=== PATIENT | male | born 1975 | race Caucasian/White ===

== ENCOUNTER 2022-10-05 17:57 | Inpatient (IN) | payer OTHER ==
[2022-10-05] MEDS ORDERED: NITROGLYCERIN OINT 1 INCH/GM PACKET TOPICAL STA (18:40)
[2022-10-05] MEDS ORDERED: FUROSEMIDE 10 MG/ML 4 ML VIAL IV STA (18:40)
--- NOTE | 2022-10-05 18:42 | ED ---
General Adult HPI - General Chief complaint: Shortness of Breath Stated complaint: swelling in feet Time Seen by Provider: 10/05/22 18:25 Source: patient, RN notes reviewed Mode of arrival: ambulatory Limitations: no limitations - History of Present Illness Initial comments: Patient is a pleasant 46-year-old male presenting to emergency department for l eg edema. Symptoms have rest over the past 7-10 days. Patient has had some mild occasional dyspnea over a couple of months. No history of similar symptoms previously. No chest pain. No calf pain. - Related Data Previous Rx's Medication Instructions Recorded amLODIPine BESYLATE [Norvasc] 5 mg PO DAILY #10 tab 02/28/14 Allergies Allergy/AdvReac Type Severity Reaction Status Date / Time Penicillins Allergy Unknown Verified 02/28/14 11:36 Childhood Review of Systems ROS Statement: Those systems with pertinent positive or pertinent negative responses have been documented in the HPI. ROS Other: All systems not noted in ROS Statement are negative. Constitutional: Denies: fever Eyes: Denies: eye pain ENT: Denies: ear pain Respiratory: Reports: as per HPI. Denies: cough Cardiovascular: Reports: edema. Denies: chest pain Endocrine: Denies: fatigue Gastrointestinal: Denies: abdominal pain Genitourinary: Denies: dysuria Skin: Denies: lesions Neurological: Denies: weakness Past Medical History Past Medical History: Hypertension History of Any Multi-Drug Resistant Organisms: None Reported Past Surgical History: No Surgical Hx Reported Past Psychological History: No Psychological Hx Reported Past Alcohol Use History: Occasional Past Drug Use History: None Reported General Exam Limitations: no limitations General appearance: alert, in no apparent distress Head exam: Present: normocephalic Eye exam: Present: normal appearance Neck exam: Present: normal inspection Respiratory exam: Present: normal lung sounds bilaterally Cardiovascular Exam: Present: regular rate, normal rhythm, normal heart sounds GI/Abdominal exam: Present: soft. Absent: tenderness Extremities exam: Present: pedal edema. Absent: calf tenderness Neurological exam: Present: alert Psychiatric exam: Present: normal affect, normal mood Skin exam: Present: normal color Course Vital Signs 10/05/22 10/05/22 18:21 18:37 Temperature 98.7 F Pulse Rate 107 H 98 Respiratory 20 18 Rate Blood Pressure 204/138 202/138 O2 Sat by Pulse 95 97 Oximetry EKG Findings - EKG Results: EKG: interpreted by ERMD (LVH. Right axis. No acute ST change.), sinus rhythm EKG shows: tachycardia Medical Decision Making - Medical Decision Making Was pt. sent in by a medical professional or institution (RICARDO Marie, MASTER ESTHETICIAN, urgent care, hospital, or long-term...) When possible be specific @ -[No] Did you speak to anyone other than the patient for history (EMS, parent, family, police, friend...)? What history was obtained from this source @ -[No] Did you review nursing and triage notes (agree or disagree)? Why? @ -[I reviewed and agree with nursing and triage notes] Were old charts reviewed (outside hosp., previous admission, EMS record, old EKG, old radiological studies, urgent care reports/EKG's, long-term records)? Report findings @ -[No old charts were reviewed] Differential Diagnosis (chest pain, altered mental status, abdominal pain women, abdominal pain men, vaginal bleeding, weakness, fever, dyspnea, syncope, headache, dizziness, GI bleed, back pain, seizure, CVA, palpatations, mental health)? @ -[Differential Dyspnea: Coronary syndrome, arrhythmia, tamponade, asthma, COPD, pulmonary embolism, pneumonia, pneumothorax, pulmonary effusion, anaphylaxis, diabetic ketoacidosis, flailed chest, pulmonary contusion, diaphragmatic rupture, anemia, neuromuscular, this is not meant to be an all-inclusive list. ] EKG interpreted by me (3pts min.). @ -[As above] X-rays interpreted by me (1pt min.). @ -Chest x-ray shows cardiomegaly CT interpreted by me (1pt min.). @ -[None done] U/S interpreted by me (1pt. min.). @ -[None done] What testing was considered but not performed or refused? (CT, X-rays, U/S, labs)? Why? @ -[None] What meds were considered but not given or refused? Why? @ -[None] Did you discuss the management of the patient with other professionals (professionals i.e. RICARDO Marie, MASTER ESTHETICIAN, lab, RT, psych nurse, sexual assault social worker, cryptologist, teacher, staff combat information center officer, social work case manager)? Give summary @ -[Case was discussed with admitting provider] Was smoking cessation discussed for >3mins.? @ -[No] Was critical care preformed (if so, how long)? @ -[No] Were there social determinants of health that impacted care today? How? (Homelessness, low income, unemployed, alcoholism, drug addiction, transportation, low edu. Level, literacy, decrease access to med. care, longterm, rehab)? @ -[No] Was there de-escalation of care discussed even if they declined (Discuss DNR or withdrawal of care, Hospice)? DNR status @ -[No] What co-morbidities impacted this encounter? (DM, HTN, Smoking, COPD, CAD, Cancer, CVA, ARF, Chemo, Hep., AIDS, mental health diagnosis, sleep apnea, morbid obesity)? @ -[None] Was patient admitted / discharged? Hospital course, mention meds given and route, prescriptions, significant lab abnormalities, going to OR and other pertinent info. @ -[Patient reevaluated. Patient and family updated on results and plan. Patient will need admission with cardiac evaluation and echo.] Undiagnosed new problem with uncertain prognosis? @ -[No] Drug Therapy requiring intensive monitoring for toxicity (Heparin, Nitro, Insulin, Cardizem)? @ -[No] Were any procedures done? @ -[No] Diagnosis/symptom? @ -[CHF] Acute, or Chronic, or Acute on Chronic? @ -acute Uncomplicated (without systemic symptoms) or Complicated (systemic symptoms)? @ -[default] Side effects of treatment? @ -[No] Exacerbation, Progression, or Severe Exacerbation? @ -[No] Poses a threat to life or bodily function? How? (Chest pain, [place], [place], pneumonia, PE, COPD, DKA, ARF, appy, cholecystitis, CVA, Diverticulitis, Homicidal, Suicidal, threat to staff... and all critical care pts) @ -[No] - Lab Data Result diagrams: 10/05/22 18:48 10/05/22 18:48 Lab Results 10/05/22 10/05/22 10/05/22 Range/Units 18:48 18:48 18:48 WBC 10.8 H (3.8-10.6) k/uL RBC 5.30 (4.30-5.90) m/uL Hgb 14.7 (13.0-17.5) gm/dL Hct 44.1 (39.0-53.0) % MCV 83.3 (80.0-100.0) fL MCH 27.8 (25.0-35.0) pg MCHC 33.4 (31.0-37.0) g/dL RDW 14.8 (11.5-15.5) % Plt Count 183 (150-450) k/uL MPV 7.8 Neutrophils % 79 % Lymphocytes % 14 % Monocytes % 4 % Eosinophils % 1 % Basophils % 0 % Neutrophils # 8.5 H (1.3-7.7) k/uL Lymphocytes # 1.5 (1.0-4.8) k/uL Monocytes # 0.4 (0-1.0) k/uL Eosinophils # 0.1 (0-0.7) k/uL Basophils # 0.0 (0-0.2) k/uL Poikilocytosis Slight PT 11.4 (9.0-12.0) sec INR 1.1 (<1.2) APTT 21.9 L (22.0-30.0) sec Sodium 137 (137-145) mmol/L Potassium (3.5-5.1) mmol/L Chloride 102 (98-107) mmol/L Carbon Dioxide 25 (22-30) mmol/L Anion Gap 10 mmol/L BUN 25 H (9-20) mg/dL Creatinine 1.18 (0.66-1.25) mg/dL Est GFR (CKD-EPI)AfAm 84 (>60 ml/min/1.73 sqM) Est GFR (CKD-EPI)NonAf 73 (>60 ml/min/1.73 sqM) Glucose 124 H (74-99) mg/dL Calcium 8.7 (8.4-10.2) mg/dL Total Bilirubin 1.3 (0.2-1.3) mg/dL AST 51 (17-59) U/L ALT 34 (4-49) U/L Alkaline Phosphatase 80 (38-126) U/L Troponin I (0.000-0.034) ng/mL NT-Pro-B Natriuret Pep pg/mL Total Protein 6.4 (6.3-8.2) g/dL Albumin 3.7 (3.5-5.0) g/dL 10/05/22 10/05/22 Range/Units 18:48 18:48 WBC (3.8-10.6) k/uL RBC (4.30-5.90) m/uL Hgb (13.0-17.5) gm/dL Hct (39.0-53.0) % MCV (80.0-100.0) fL MCH (25.0-35.0) pg MCHC (31.0-37.0) g/dL RDW (11.5-15.5) % Plt Count (150-450) k/uL MPV Neutrophils % % Lymphocytes % % Monocytes % % Eosinophils % % Basophils % % Neutrophils # (1.3-7.7) k/uL Lymphocytes # (1.0-4.8) k/uL Monocytes # (0-1.0) k/uL Eosinophils # (0-0.7) k/uL Basophils # (0-0.2) k/uL Poikilocytosis PT (9.0-12.0) sec INR (<1.2) APTT (22.0-30.0) sec Sodium (137-145) mmol/L Potassium (3.5-5.1) mmol/L Chloride (98-107) mmol/L Carbon Dioxide (22-30) mmol/L Anion Gap mmol/L BUN (9-20) mg/dL Creatinine (0.66-1.25) mg/dL Est GFR (CKD-EPI)AfAm (>60 ml/min/1.73 sqM) Est GFR (CKD-EPI)NonAf (>60 ml/min/1.73 sqM) Glucose (74-99) mg/dL Calcium (8.4-10.2) mg/dL Total Bilirubin (0.2-1.3) mg/dL AST (17-59) U/L ALT (4-49) U/L Alkaline Phosphatase (38-126) U/L Troponin I 0.104 H* (0.000-0.034) ng/mL NT-Pro-B Natriuret Pep 25567 pg/mL Total Protein (6.3-8.2) g/dL Albumin (3.5-5.0) g/dL Disposition Clinical Impression: Congestive heart failure Disposition: ADMITTED IP TO THIS HOSP Condition: Serious Is patient prescribed a controlled substance at d/c from ED?: No Referrals: Hilario Goldstein MD [STAFF PHYSICIAN] - 1-2 days Time of Disposition: 20:08
--- NOTE | 2022-10-05 19:11 | XR ---
EXAMINATION TYPE: XR chest 2V DATE OF EXAM: 10/05/2022 COMPARISON: NONE HISTORY: Chest pain TECHNIQUE: 2 views FINDINGS: Heart is moderately enlarged. No heart failure. Lungs are clear of infiltrate. No pleural e ffusion. Bony thorax is intact. IMPRESSION: Cardiomegaly. Heart significantly increased compared to old exam pericardial effusion is possible.
[2022-10-05 19:23] LABS: Basophils % (A) 0 %; Eosinophils # (A) 0.1 k/uL (0-0.7); Eosinophils % (A) 1 %; HCT 44.1 % (39.0-53.0); HGB 14.7 gm/dL (13.0-17.5); Lymphocytes # (A) 1.5 k/uL (1.0-4.8); Lymphocytes % (A) 14 %; MCH 27.8 pg (25.0-35.0); MCHC 33.4 g/dL (31.0-37.0); MCV 83.3 fL (80.0-100.0); Mean Platelet Volume 7.8; Monocytes # (A) 0.4 k/uL (0-1.0); Monocytes % (A) 4 %; Neutrophils # (A) 8.5 k/uL (1.3-7.7); Neutrophils % (A) 79 %; Platelet Count 183 k/uL (150-450); Poikilocytosis Slight; RDW 14.8 % (11.5-15.5); WBC 10.8 k/uL (3.8-10.6)
[2022-10-05 19:39] LABS: Albumin 3.7 g/dL (3.5-5.0); Calcium 8.7 mg/dL (8.4-10.2); Total Bilirubin 1.3 mg/dL (0.2-1.3); Total Protein 6.4 g/dL (6.3-8.2)
[2022-10-05 19:48] LABS: INR 1.1 (<1.2); Partial Thromboplastin Time 21.9 sec (22.0-30.0); Prothrombin Time 11.4 sec (9.0-12.0)
[2022-10-05] MEDS ORDERED: ASPIRIN 325 MG TAB PO STA (20:04)
[2022-10-05] MEDS ORDERED: ENALAPRILAT 1.25 MG/ML 1 ML VIAL IVP STA (20:06)
[2022-10-05] MEDS ORDERED: lisinopriL 10 MG TAB PO SCH (20:15)
[2022-10-05] MEDS: NITROGLYCERIN OINT 1 INCH/GM PACKET TOPICAL SCH ×2 (21:40→21:41)
[2022-10-05] MEDS: hydrALAZINE HCL 20 MG/ML 1 ML VIAL IVP PRN (23:20)
[2022-10-06] MEDS ORDERED: lisinopriL 10 MG TAB PO STA (03:24)
[2022-10-06] MEDS ORDERED: hydrALAZINE HCL 20 MG/ML 1 ML VIAL IVP STA (03:28)
[2022-10-06] MEDS: ACETAMINOPHEN TAB 325 MG TAB PO PRN ×3 (03:37→17:08)
[2022-10-06] MEDS: FUROSEMIDE 10 MG/ML 4 ML VIAL IV SCH ×3 (03:38→21:20)
[2022-10-06 04:39] LABS: Basophils % (A) 0 %; Eosinophils % (A) 0 %; HCT 46.8 % (39.0-53.0); HGB 15.3 gm/dL (13.0-17.5); Lymphocytes # (A) 0.7 k/uL (1.0-4.8); Lymphocytes % (A) 8 %; MCH 27.8 pg (25.0-35.0); MCHC 32.6 g/dL (31.0-37.0); Mean Platelet Volume 7.4; Monocytes # (A) 0.3 k/uL (0-1.0); Monocytes % (A) 3 %; Neutrophils # (A) 8.4 k/uL (1.3-7.7); Neutrophils % (A) 88 %; Platelet Count 201 k/uL (150-450); Poikilocytosis Slight; RBC 5.51 m/uL (4.30-5.90); RDW 14.5 % (11.5-15.5); WBC 9.5 k/uL (3.8-10.6)
[2022-10-06 04:50] LABS: African American GFR (CKD) >90 (>60 ml/min/1.73 sqM); Anion Gap 11 mmol/L; Blood Urea Nitrogen 19 mg/dL (9-20); Carbon Dioxide 29 mmol/L (22-30); Chloride 99 mmol/L (98-107); Glucose 142 mg/dL (74-99); Non-African American GFR(CKD) >90 (>60 ml/min/1.73 sqM); Sodium 139 mmol/L (137-145)
[2022-10-06] MEDS ORDERED: Potassium Replacement Protocol 1 EACH MISC MISCELLANE PRN (07:48)
--- NOTE | 2022-10-06 08:13 | P.HPIM ---
History of Present Illness This is a pleasant 46 years old male with past medical history of hypertension. He had comment last June 2022 he presents because of bilateral leg swelling has been going on for about a week, associated with severe exertion, he was concerned about his covid infection few months ago so he came to the emergency roomdate However he denies any chest pain or dyspnea or coughing. But he has been complaining of from mild pain in both legs. No abdominal pain but he vomited twice yesterday. No diarrhea. No urinary symptoms like dysuria urgency He denies headache dizziness weakness or numbness Smoking about 60 days ago, he quit drinking alcohol many years ago and he uses marijuana for a creation. Vitals his stable, afebrile The [place] mildly elevated at 10.8, rest of CBC, INR BMP and liver enzymes unremarkable. Troponin is elevated at 0.10 on 0.10. ProBNP is elevated 10 700. EKG showing sinus tachycardia at 207, no ST T changes Chest x-ray: Cardiomegaly with possible pericardial effusion. He looked at the chest x-ray myself and there is lack Review of Systems Review of systems CONSTITUTIONAL: No fever, no malaise, no fatigue. HEENT: No recent visual problems or hearing problems. Denied any sore throat. CARDIOVASCULAR: No orthopnea, PND, no palpitations, no syncope. PULMONARY: No shortness of breath, no cough, no hemoptysis. GASTROINTESTINAL: No diarrhea, no nausea, no vomiting, no abdominal pain. Normoactive bowel sounds. NEUROLOGICAL: No headaches, no weakness, no numbness. HEMATOLOGICAL: Denies any bleeding or petechiae. GENITOURINARY: Denies any burning micturition, frequency, or urgency. MUSCULOSKELETAL/RHEUMATOLOGICAL: Denies any joint pain, swelling, or any muscle pain. ENDOCRINE: Denies any polyuria or polydipsia. Past Medical History Past Medical History: Hypertension History of Any Multi-Drug Resistant Organisms: None Reported Past Surgical History: No Surgical Hx Reported Past Psychological History: No Psychological Hx Reported Past Alcohol Use History: Occasional Past Drug Use History: None Reported Medications and Allergies Home Medications Medication Instructions Recorded Confirmed Type No Known Home Medications 10/05/22 10/05/22 History Allergies Allergy/AdvReac Type Severity Reaction Status Date / Time Penicillins Allergy Unknown Verified 10/05/22 21:12 Childhood Physical Exam Vitals: Vital Signs Temp Pulse Resp BP Pulse Ox 10/06/22 06:35 16 10/06/22 06:33 83 3 L 164/109 10/06/22 05:37 82 13 174/109 96 10/06/22 05:00 84 15 185/122 95 10/06/22 04:30 80 15 191/119 96 10/06/22 04:21 81 22 191/119 96 10/06/22 03:36 86 18 188/113 98 10/06/22 02:44 81 16 192/138 10/06/22 01:05 84 20 199/124 96 10/06/22 01:00 85 11 L 188/114 97 10/06/22 00:55 88 15 190/123 97 10/06/22 00:50 85 14 185/117 97 10/06/22 00:45 84 21 150/137 96 10/06/22 00:40 87 6 L 10/06/22 00:35 189/119 10/06/22 00:30 87 11 L 179/111 97 10/06/22 00:28 86 16 179/111 95 10/06/22 00:25 86 19 180/116 96 10/06/22 00:20 89 15 185/121 10/06/22 00:15 87 9 L 185/119 96 10/06/22 00:10 89 14 183/112 96 10/06/22 00:05 88 7 L 188/116 96 10/05/22 23:50 90 36 H 190/124 10/05/22 23:30 91 15 185/115 96 10/05/22 23:25 87 24 183/114 10/05/22 23:20 89 14 188/118 10/05/22 23:15 90 11 L 176/116 97 10/05/22 23:14 89 17 176/116 10/05/22 22:15 92 20 184/130 94 L 10/05/22 22:05 180/120 96 10/05/22 22:00 93 22 186/130 95 10/05/22 21:55 92 12 180/129 94 L 10/05/22 21:50 92 18 180/118 96 10/05/22 21:45 92 16 184/123 95 10/05/22 21:42 184/123 10/05/22 21:40 92 17 192/132 97 10/05/22 21:35 93 17 207/137 95 10/05/22 21:30 54 H 196/127 10/05/22 21:25 91 16 191/122 97 10/05/22 21:20 91 12 195/143 97 10/05/22 21:15 96 15 199/137 97 10/05/22 21:10 96 18 209/141 96 10/05/22 21:00 202/136 10/05/22 20:55 97 13 208/138 96 10/05/22 20:50 99 18 209/150 10/05/22 20:48 95 18 209/150 95 10/05/22 20:46 96 16 189/142 96 10/05/22 20:45 98 20 189/142 10/05/22 20:40 96 17 189/142 10/05/22 20:35 96 14 189/142 96 10/05/22 20:30 97 24 189/142 96 10/05/22 20:25 96 16 189/142 96 10/05/22 20:00 96 18 201/143 97 10/05/22 19:14 99 20 94 L 10/05/22 18:37 98 18 202/138 97 10/05/22 18:21 98.7 F 107 H 20 204/138 95 Intake and Output 10/05/22 10/06/22 10/06/22 22:59 06:59 14:59 Other: Weight 86.183 kg GENERAL: The patient is alert and oriented x3, not in any acute distress. Well developed, well nourished. HEENT: Pupils are round and equally reacting to light. EOMI. No scleral icterus. No conjunctival pallor. Normocephalic, atraumatic. No pharyngeal erythema. No thyromegaly. CARDIOVASCULAR: S1 and S2 present. No murmurs, rubs, or gallops. PULMONARY: Chest is clear to auscultation, no wheezing or crackles. ABDOMEN: Soft, nontender, nondistended, normoactive bowel sounds. No palpable organomegaly. MUSCULOSKELETAL: No joint swelling or deformity. -EXTREMITIES: No cyanosis, clubbing,, bilateral pitting like edema. NEUROLOGICAL: Gross neurological examination did not reveal any focal deficits. SKIN: No rashes. no petechiae. Results CBC & Chem 7: 10/06/22 03:57 10/06/22 03:57 Labs: Abnormal Lab Results - Last 24 Hours (Table) 10/05/22 10/05/22 10/05/22 Range/Units 18:48 18:48 18:48 WBC 10.8 H (3.8-10.6) k/uL Neutrophils # 8.5 H (1.3-7.7) k/uL Lymphocytes # (1.0-4.8) k/uL APTT 21.9 L (22.0-30.0) sec Potassium (3.5-5.1) mmol/L BUN 25 H (9-20) mg/dL Glucose 124 H (74-99) mg/dL Troponin I (0.000-0.034) ng/mL 10/05/22 10/05/22 10/06/22 Range/Units 18:48 23:02 03:57 WBC (3.8-10.6) k/uL Neutrophils # (1.3-7.7) k/uL Lymphocytes # (1.0-4.8) k/uL APTT (22.0-30.0) sec Potassium (3.5-5.1) mmol/L BUN (9-20) mg/dL Glucose (74-99) mg/dL Troponin I 0.104 H* 0.102 H* 0.077 H* (0.000-0.034) ng/mL 10/06/22 10/06/22 Range/Units 03:57 03:57 WBC (3.8-10.6) k/uL Neutrophils # 8.4 H (1.3-7.7) k/uL Lymphocytes # 0.7 L (1.0-4.8) k/uL APTT (22.0-30.0) sec Potassium 3.0 L (3.5-5.1) mmol/L BUN (9-20) mg/dL Glucose 142 H (74-99) mg/dL Troponin I (0.000-0.034) ng/mL Assessment and Plan Assessment: new Onset CHF Elevated troponin Hypertension possible pericardial effusion Plan: Continue with aspirin Continue with IV Lasix Check echocardiogram Check ultrasound of the legs Cardiology consult start metoprolol for hypertension, continue with lisinopril, continue with diuretic, hydralazine when necessary Labs and medication were reviewed.. Continue same treatment. Continue with symptomatic treatment. Resume home medication. Monitor labs and vitals. DVT and GI prophylaxis. Further recommendations as per clinical course of the patient DVT prophylaxis: Subcutaneous heparin GI Prophylaxis: Pepcid
--- NOTE | 2022-10-06 08:55 | US ---
EXAMINATION TYPE: US venous doppler duplex LE DATE OF EXAM: 10/06/2022 8:14 AM COMPARISON: NONE CLINICAL HISTORY: Bilateral leg swelling. SIDE PERFORMED: Bilateral TECHNIQUE: The lower extremity deep venous system is examined utilizing real time linear array sonog tomasa with graded compression, doppler sonography and color-flow sonography. VESSELS IMAGED: Common Femoral Vein Deep Femoral Vein Greater Saphenous Vein * Femoral Vein Popliteal Vein Small Saphenous Vein * Proximal Calf Veins (* superficial vessels) Right Leg: Negative for DVT Left Leg: Negative for DVT IMPRESSION: Grayscale, color doppler, spectral doppler imaging performed of the deep veins of the lo wer extremities. There is normal flow, compressibility, vascular waveforms.
[2022-10-06] MEDS ORDERED: METOPROLOL TARTRATE 25 MG TAB PO SCH (09:00)
[2022-10-06 09:03] LABS: Chol/HDL Ratio 3.78 Ratio; LDL Cholesterol,Calculated 137.5 mg/dL (0.0-131.0); VLDL Calculation 13.26 mg/dL (5.00-40.00)
[2022-10-06] MEDS: carvediloL 3.125 MG TAB PO SCH ×2 (09:41→17:10)
[2022-10-06] MEDS: lisinopriL 20 MG TAB PO SCH (09:41)
[2022-10-06] MEDS: ASPIRIN 325 MG TAB PO SCH (09:41)
[2022-10-06] MEDS: NITROGLYCERIN OINT 1 INCH/GM PACKET TOPICAL SCH ×4 (09:42→21:20)
[2022-10-06] MEDS: HEPARIN SODIUM,PORCINE/PF 5,000 UNIT/0.5 ML SYRINGE SQ SCH ×2 (09:42→21:20)
[2022-10-06] MEDS: FAMOTIDINE 20 MG/2 ML VIAL IV SCH ×2 (09:44→21:20)
--- NOTE | 2022-10-06 10:27 | CA ---
Transthoracic Echo Report Name: Sajan Hi Age: 46 Gender: M : 1975 Exam Date: 10/06/2022 08:46 Exam Location: [place] [facility] Ht (in): 70 Wt (lb): 190 Ordering Physician: Erik Monge DO Attending/Referring Phys: Di Roque, ELADIO Sliver Lap Machine Tender Procedure CPT: Indications: Heart failure Cardiac Hx: HTN; MR; Technical Quality: Good Contrast 1: Total Dose (mL): Contrast 2: Total Dose (mL): MEASUREMENTS (Male / Female) Normal Values 2D ECHO LV Diastolic Diameter PLAX 5.7 cm 4.2 - 5.9 / 3.9 - 5.3 cm LV Systolic Diameter PLAX 4.3 cm IVS Diastolic Thickness 1.6 cm 0.6 - 1.0 / 0.6 - 0.9 cm LVPW Diastolic Thickness 1.9 cm 0.6 - 1.0 / 0.6 - 0.9 cm LV Relative Wall Thickness 0.6 RV Internal Dim ED PLAX 3.7 cm LVOT Diameter 2.2 cm LA Systolic Diameter LX 6.8 cm 3.0 - 4.0 / 2.7 - 3.8 cm LV Diastolic Volume MOD BP 207.6 cm??? 67 - 155 / 56 - 104 cm??? LV Systolic Volume MOD BP 106.5 cm??? 22 - 58 / 19 - 49 cm??? LV Ejection Fraction MOD BP 48.7 % >= 55 % LV Diastolic Volume MOD 4C 220.1 cm??? LV Systolic Volume MOD 4C 101.7 cm??? LV Ejection Fraction MOD 4C 53.8 % LV Diastolic Length 4C 10.4 cm LV Systolic Length 4C 7.9 cm LV Diastolic Volume MOD 2C 190.7 cm??? LV Systolic Volume MOD 2C 112.6 cm??? LV Ejection Fraction MOD 2C 40.9 % LV Diastolic Length 2C 10.1 cm LV Systolic Length 2C 8.0 cm LA Volume 242.4 cm??? 18 - 58 / 22 - 52 cm??? Ascending Aorta Diameter 2.7 cm M-MODE Aortic Root Diameter MM 3.0 cm LA Systolic Diameter MM 6.5 cm LA Ao Ratio MM 2.1 MV E Point Septal Separation 1.2 cm AV Cusp Separation MM 1.7 cm DOPPLER AV Peak Velocity 141.2 cm/s AV Peak Gradient 8.0 mmHg LVOT Peak Velocity 103.6 cm/s LVOT Peak Gradient 4.3 mmHg AV Area Cont Eq pk 2.9 cm??? MV Peak Velocity 147.0 cm/s MV Peak Gradient 8.6 mmHg MV Mean Velocity 82.7 cm/s MV Mean Gradient 3.3 mmHg MV Velocity Time Integral 29.4 cm MV Area PHT 6.4 cm??? MR Peak Velocity 621.2 cm/s MR Peak Gradient 154.3 mmHg Mitral E Point Velocity 144.4 cm/s Mitral A Point Velocity 57.5 cm/s Mitral E to A Ratio 2.5 MV Deceleration Time 118.8 ms MV E' Velocity 8.4 cm/s Mitral E to MV E' Ratio 17.3 TR Peak Velocity 111.1 cm/s TR Peak Gradient 4.9 mmHg Right Ventricular Systolic Press 9.9 mmHg PV Peak Velocity 111.1 cm/s PV Peak Gradient 4.9 mmHg FINDINGS Left Ventricle Left ventricular ejection fraction is estimated at 55-60%. Mildly increased left ventricular wall thickness. Left ventricular dilatation. Moderate concentric left ventricular hypertrophy. Grade 3 diastolic dysfunction. . Right Ventricle Right ventricular dilatation. Right Atrium Mild right atrial dilatation. Left Atrium Moderate left atrial dilatation. Mitral Valve Mitral valve thickened. Mild mitral annular calcification. Moderate eccentric mitral regurgitation Aortic Valve Trileaflet aortic valve. Tricuspid Valve Mild tricuspid regurgitation. Pulmonic Valve Structurally normal pulmonic valve. Pericardium Normal pericardium. No pericardial effusion. Aorta Normal size aortic root and proximal ascending aorta. CONCLUSIONS LV size is normal probably at the upper limits of normal. Concentric LVH noted normal systolic function mild to moderate diastolic dysfunction. Right ventricle is prominent both atria are mildly enlarged there is moderate mitral regurgitation with myxomatous mitral valve leaflets. No pericardial effusion. No pulmonary hypertension Previewed by: Dr. Laura Thomas MD (Electronically Signed) Final Date: 06 October 2022 10:25
--- NOTE | 2022-10-06 12:34 | P.CRDCN ---
History of Present Illness Consult date: 10/06/22 Consult reason: congestive heart failure History of present illness: History of present illness: This is a 46-year-old male with past medical history of hypertension not taking medication. We have been asked to see the patient regarding congestive heart failure. 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 Patient states that he stopped taking his blood pressure medications after he lost 80 pounds. He gives history of lower extremity edema for the past week and progressively worsening much worse over the past 3 days, weight gain. He denies chest pain. He states he has had a little shortness of breath for the past 3 months. He was diagnosed with Covid in June and thought his shortness of breath was related to that. He denies any smoking history. He denies family history of coronary artery disease. Patient presented with a blood pressure of 204/138 status post IV Vasotec, IV Lasix, IV hydralazine, lisinopril and Nitro-Bid. EKG sinus rhythm with nonspecific ST changes. Chest x-ray has cardiomegaly. Heart significantly increased compared to old exam. Pericardial effusion is possible. Echocardiogram reveals concentric left ventricular hypertrophy. LV size is normal probably at the upper limits of normal. Normal systolic function and mild to moderate diastolic dysfunction. Right ventricle is prominent with both atria are mildly enlarged. Moderate mitral regurgitation with myxomatous mitral valve leaflets. No pericardial effusion. No pulmonary hypertension. WBC 10.8, hemoglobin 14.7, platelet count 183. INR 1.1. Electrolytes normal. BUN 25 and creatinine 1.18. Blood sugar 124. Troponins 0.104, 0.102, 0.077. Triglycerides 66, cholesterol 205, LDL 137, HDL 54, TSH 0.5-5. Review Of Systems: At the time of my evaluation: Constitutional: No fever, no chills. No weakness, fatigue or lethargy. EENT: No headache. No dizziness. Lungs: No shortness of breath, cough, no sputum production. No wheezing. Cardiovascular: No chest pain, + lower extremity edema. No palpitations. No paroxysmal nocturnal dyspnea. No orthopnea. No lightheadedness or dizziness. No syncopal episodes. Abdominal: No abdominal pain. No nausea, vomiting. No diarrhea. No constipation. No bloody or tarry stools. Genitourinary: No dysuria.. No urinary retention. Musculoskeletal: No myalgias. No muscle weakness, no frequent falls. No back pain. No neck pain. Integumentary: No wounds. No rash. No unusual bruising. Neurologic: No aphasia. No facial droop. No change in mentation. No head injury. No headache. Psychiatric: No depression. No anxiety. Endocrine: No abnormal blood sugars. Physical examination: Gen: This is a 46-year-old male. He is resting on the ER stretcher and appears to be comfortable at rest. VS: reviewed. Blood pressure 165/112, heart rate 91, pulse ox 97% on room air, afebrile HEENT: Head is atraumatic, normocephalic. Pupils equal, round. Sclerae is anicteric. NECK: Supple. No JVD. No lymphadenopathy. No thyromegaly. LUNGS: Clear to auscultation. No wheezes or rhonchi. No intercostal retractions. HEART: Regular rate and rhythm. No murmur. ABDOMEN: Soft. Bowel sounds are present. No masses. No tenderness. EXTREMITIES: 3+ pitting pedal edema. No calf tenderness. NEUROLOGICAL: Patient is awake, alert and oriented x3. Cranial nerves 2 through 12 are grossly intact. Assessment: Acute diastolic heart failure, per served(systolic function Hypertensive crisis Hypertensive cardiovascular disease Plan: Continue patient on Lasix 40 mg IV every 8 hours Monitor I&O, daily weights, electrolytes and renal function Start patient on Coreg 3.125 mg twice daily, lisinopril 40 mg daily, Nitropaste continued Further recommendations to follow based upon clinical course Thank you kindly for this consultation. Nurse practitioner note has been reviewed, I agree with documented findings and plan of care. Patient was seen and examined. Past Medical History Past Medical History: Hypertension History of Any Multi-Drug Resistant Organisms: None Reported Past Surgical History: No Surgical Hx Reported Past Psychological History: No Psychological Hx Reported Past Alcohol Use History: Occasional Past Drug Use History: None Reported Medications and Allergies Home Medications Medication Instructions Recorded Confirmed Type No Known Home Medications 10/05/22 10/05/22 History Allergies Allergy/AdvReac Type Severity Reaction Status Date / Time Penicillins Allergy Unknown Verified 10/05/22 21:12 Childhood Physical Exam Vitals: Vital Signs Temp Pulse Resp BP Pulse Ox 10/06/22 06:35 16 10/06/22 06:33 83 3 L 164/109 10/06/22 05:37 82 13 174/109 96 10/06/22 05:00 84 15 185/122 95 10/06/22 04:30 80 15 191/119 96 10/06/22 04:21 81 22 191/119 96 10/06/22 03:36 86 18 188/113 98 10/06/22 02:44 81 16 192/138 10/06/22 01:05 84 20 199/124 96 10/06/22 01:00 85 11 L 188/114 97 10/06/22 00:55 88 15 190/123 97 10/06/22 00:50 85 14 185/117 97 10/06/22 00:45 84 21 150/137 96 10/06/22 00:40 87 6 L 10/06/22 00:35 189/119 10/06/22 00:30 87 11 L 179/111 97 10/06/22 00:28 86 16 179/111 95 10/06/22 00:25 86 19 180/116 96 10/06/22 00:20 89 15 185/121 10/06/22 00:15 87 9 L 185/119 96 10/06/22 00:10 89 14 183/112 96 10/06/22 00:05 88 7 L 188/116 96 10/05/22 23:50 90 36 H 190/124 10/05/22 23:30 91 15 185/115 96 10/05/22 23:25 87 24 183/114 10/05/22 23:20 89 14 188/118 10/05/22 23:15 90 11 L 176/116 97 10/05/22 23:14 89 17 176/116 10/05/22 22:15 92 20 184/130 94 L 10/05/22 22:05 180/120 96 10/05/22 22:00 93 22 186/130 95 10/05/22 21:55 92 12 180/129 94 L 10/05/22 21:50 92 18 180/118 96 10/05/22 21:45 92 16 184/123 95 10/05/22 21:42 184/123 10/05/22 21:40 92 17 192/132 97 10/05/22 21:35 93 17 207/137 95 10/05/22 21:30 54 H 196/127 10/05/22 21:25 91 16 191/122 97 10/05/22 21:20 91 12 195/143 97 10/05/22 21:15 96 15 199/137 97 10/05/22 21:10 96 18 209/141 96 10/05/22 21:00 202/136 10/05/22 20:55 97 13 208/138 96 10/05/22 20:50 99 18 209/150 10/05/22 20:48 95 18 209/150 95 10/05/22 20:46 96 16 189/142 96 10/05/22 20:45 98 20 189/142 10/05/22 20:40 96 17 189/142 10/05/22 20:35 96 14 189/142 96 10/05/22 20:30 97 24 189/142 96 10/05/22 20:25 96 16 189/142 96 10/05/22 20:00 96 18 201/143 97 10/05/22 19:14 99 20 94 L 10/05/22 18:37 98 18 202/138 97 10/05/22 18:21 98.7 F 107 H 20 204/138 95 Intake and Output 10/05/22 10/06/22 10/06/22 22:59 06:59 14:59 Other: Weight 86.183 kg Results 10/06/22 03:57 10/06/22 03:57 Cardiac Enzymes 10/05/22 10/05/22 10/05/22 Range/Units 18:48 18:48 23:02 AST 51 (17-59) U/L Troponin I 0.104 H* 0.102 H* (0.000-0.034) ng/mL 10/06/22 Range/Units 03:57 AST (17-59) U/L Troponin I 0.077 H* (0.000-0.034) ng/mL Coagulation 10/05/22 Range/Units 18:48 PT 11.4 (9.0-12.0) sec APTT 21.9 L (22.0-30.0) sec CBC 10/05/22 10/06/22 Range/Units 18:48 03:57 WBC 10.8 H 9.5 (3.8-10.6) k/uL RBC 5.30 5.51 (4.30-5.90) m/uL Hgb 14.7 15.3 (13.0-17.5) gm/dL Hct 44.1 46.8 (39.0-53.0) % Plt Count 183 201 (150-450) k/uL Comprehensive Metabolic Panel 10/05/22 10/06/22 Range/Units 18:48 03:57 Sodium 137 139 (137-145) mmol/L Potassium 3.0 L (3.5-5.1) mmol/L Chloride 102 99 (98-107) mmol/L Carbon Dioxide 25 29 (22-30) mmol/L BUN 25 H 19 (9-20) mg/dL Creatinine 1.18 0.95 (0.66-1.25) mg/dL Glucose 124 H 142 H (74-99) mg/dL Calcium 8.7 9.0 (8.4-10.2) mg/dL AST 51 (17-59) U/L ALT 34 (4-49) U/L Alkaline Phosphatase 80 (38-126) U/L Total Protein 6.4 (6.3-8.2) g/dL Albumin 3.7 (3.5-5.0) g/dL Current Medications Generic Name Dose Route Start Last Admin Trade Name Freq PRN Reason Stop Dose Admin Acetaminophen 650 mg 10/06/22 03:28 10/06/22 03:37 Acetaminophen Tab 325 Mg Tab PO 650 mg Q6HR PRN Administration Fever and/ or Pain Aspirin 325 mg 10/06/22 09:00 Aspirin 325 Mg Tab PO DAILY [facility] Famotidine 20 mg 10/06/22 09:00 Famotidine 20 Mg/2 Ml Vial IV Q12HR SUDHA Furosemide 40 mg 10/06/22 04:00 10/06/22 03:38 Furosemide 10 Mg/Ml 4 Ml Vial IV 40 mg Q8H SUDHA Administration Heparin Sodium (Porcine) 5,000 unit 10/06/22 09:00 Heparin Sodium,Porcine/Pf 5,000 Unit/0.5 Ml Syringe SQ Q12HR SUDHA Hydralazine HCl 10 mg 10/05/22 23:00 10/05/22 23:20 Hydralazine Hcl 20 Mg/Ml 1 Ml Vial IVP 10 mg Q6HR PRN Administration Blood Pressure - High Lisinopril 40 mg 10/06/22 09:00 Lisinopril 20 Mg Tab PO DAILY SUDHA Metoprolol Tartrate 25 mg 10/06/22 09:00 Metoprolol Tartrate 25 Mg Tab PO BID SUDHA Miscellaneous Information 1 each 10/06/22 07:48 Potassium Replacement Protocol 1 Each Misc MISCELLANE DAILY PRN Per Protocol Protocol Nitroglycerin 1 inch 10/05/22 22:00 10/05/22 21:41 Nitroglycerin Oint 1 Inch/Gm Packet TOPICAL Not Given QID SUDHA Intake and Output 10/05/22 10/06/22 10/06/22 22:59 06:59 14:59 Other: Weight 86.183 kg 10/06/22 03:57 10/06/22 03:57
[2022-10-06] MEDS: hydrALAZINE HCL 20 MG/ML 1 ML VIAL IVP PRN (17:10)
[2022-10-06] MEDS: hydrALAZINE HCL 50 MG TAB PO SCH ×2 (21:47→21:48)
[2022-10-06] MEDS: amLODIPine 10 MG TAB PO SCH (21:47)
[2022-10-07] MEDS: FUROSEMIDE 10 MG/ML 4 ML VIAL IV SCH ×3 (03:29→19:42)
[2022-10-07] MEDS: carvediloL 3.125 MG TAB PO SCH (06:53)
[2022-10-07 08:13] LABS: African American GFR (CKD) >90 (>60 ml/min/1.73 sqM); Anion Gap 9 mmol/L; Blood Urea Nitrogen 17 mg/dL (9-20); Calcium 8.7 mg/dL (8.4-10.2); Carbon Dioxide 30 mmol/L (22-30); Chloride 100 mmol/L (98-107); Glucose 89 mg/dL (74-99); Non-African American GFR(CKD) 86 (>60 ml/min/1.73 sqM); Potassium 2.9 mmol/L (3.5-5.1); Sodium 139 mmol/L (137-145)
[2022-10-07] MEDS: HEPARIN SODIUM,PORCINE/PF 5,000 UNIT/0.5 ML SYRINGE SQ SCH ×2 (08:13→19:46)
[2022-10-07] MEDS: amLODIPine 10 MG TAB PO SCH (08:13)
[2022-10-07] MEDS: ASPIRIN 325 MG TAB PO SCH (08:13)
[2022-10-07] MEDS: lisinopriL 20 MG TAB PO SCH (08:13)
[2022-10-07] MEDS: hydrALAZINE HCL 50 MG TAB PO SCH ×3 (08:13→23:04)
[2022-10-07] MEDS: NITROGLYCERIN OINT 1 INCH/GM PACKET TOPICAL SCH (08:14)
[2022-10-07] MEDS: FAMOTIDINE 20 MG/2 ML VIAL IV SCH (08:14)
[2022-10-07] MEDS ORDERED: Potassium Replacement Protocol 1 EACH MISC MISCELLANE PRN (08:51)
[2022-10-07] MEDS ORDERED: carvediloL 3.125 MG TAB PO STA (10:18)
[2022-10-07] MEDS: POTASSIUM CHLORIDE ER 20 MEQ TAB.ER PO SCH ×2 (10:49→12:27)
[2022-10-07] MEDS: SPIRONOLACTONE 25 MG TAB PO SCH (10:49)
[2022-10-07] MEDS: ACETAMINOPHEN TAB 325 MG TAB PO PRN (12:31)
--- NOTE | 2022-10-07 14:11 | P.PN ---
Subjective Progress Note Date: 10/07/22 History of present illness: This is a 46-year-old male with past medical history of hypertension not taking medication. We have been asked to see the patient regarding congestive heart failure. Patient does not follow with a shear tender and denies history of coronary artery disease. Patient states that he stopped taking his blood pressure medications after he lost 80 pounds. He gives history of lower extremity edema for the past week and progressively worsening much worse over the past 3 days, weight gain. He denies chest pain. He states he has had a little shortness of breath for the past 3 months. He was diagnosed with Covid in June and thought his shortness of breath was related to that. He denies any smoking history. He denies family history of coronary artery disease. Patient presented with a blood pressure of 204/138 status post IV Vasotec, IV Lasix, IV hydralazine, lisinopril and Nitro-Bid. EKG sinus rhythm with nonspecific ST changes. Chest x-ray has cardiomegaly. Heart significantly increased compared to old exam. Pericardial effusion is possible. Echocardiogram reveals concentric left ventricular hypertrophy. LV size is normal probably at the upper limits of normal. Normal systolic function and mild to moderate diastolic dysfunction. Right ventricle is prominent with both atria are mildly enlarged. Moderate mitral regurgitation with myxomatous mitral valve leaflets. No pericardial effusion. No pulmonary hypertension. WBC 10.8, hemoglobin 14.7, platelet count 183. INR 1.1. Electrolytes normal. BUN 25 and creatinine 1.18. Blood sugar 124. Troponins 0.104, 0.102, 0.077. Triglycerides 66, cholesterol 205, LDL 137, HDL 54, TSH 0.5-5. 3/2 Patient is seen today on the cardiac stepdown unit. He did not have blood pressure remains high and heart rate is elevated. He states he is feeling well today. No chest pain or shortness of breath. Overall condition is improved from yesterday. He states he felt a sudden onset of 4 AM. He is urinating well and decreased edema to the lower extremities. Repeat blood work reveals sodium of 139, potassium 2.9, BUN 17 and creatinine 1.03. Physical examination: Gen: This is a 46-year-old male. He is resting in bed and appears to be comfortable at rest. VS: reviewed. Blood pressure 165/112, heart rate 91, pulse ox 97% on room air, afebrile HEENT: Head is atraumatic, normocephalic. Pupils equal, round. Sclerae is anicteric. NECK: Supple. No JVD. No lymphadenopathy. No thyromegaly. LUNGS: Clear to auscultation. No wheezes or rhonchi. No intercostal retractions. HEART: Regular rate and rhythm. No murmur. ABDOMEN: Soft. Bowel sounds are present. No masses. No tenderness. EXTREMITIES: 3+ pitting pedal edema. No calf tenderness. NEUROLOGICAL: Patient is awake, alert and oriented x3. Cranial nerves 2 through 12 are grossly intact. Assessment: Acute diastolic heart failure, per served(systolic function Elevated troponin, of unclear etiology, possibly due to heart failure and hypertension Hypertensive crisis Hypertensive cardiovascular disease Plan: Continue patient on Lasix 40 mg IV every 8 hours Monitor I&O, daily weights, electrolytes and renal function Increase Coreg 6.125 mg twice daily, continue lisinopril 40 mg daily, discontinue Nitropaste Start patient on Aldactone 25 mg daily Replace potassium today and then discontinue potassium supplement We will consider cardiac catheterization or stress testing tomorrow depending on patient's condition/symptoms. Patient will be made nothing by mouth tonight Further recommendations to follow based upon clinical course Nurse practitioner note has been reviewed, I agree with documented findings and plan of care. Patient was seen and examined. Objective - Vital Signs Vital signs: Vital Signs Temp 97.9 F 10/07/22 10:54 Pulse 76 10/07/22 10:54 Resp 18 10/07/22 10:54 BP 159/98 10/07/22 10:54 Pulse Ox 98 10/07/22 10:54 FiO2 Intake & Output 10/06/22 10/07/22 10/07/22 18:59 06:59 18:59 Intake Total 480 Output Total 2350 Balance -1870 Weight 86.183 kg 84.9 kg Intake: Oral 480 Output: Urine 2350 Other: Voiding Method Toilet Toilet Toilet # Voids 1 3 2 - Labs CBC & Chem 7: 10/06/22 03:57 10/07/22 07:04 Labs: Abnormal Lab Results - Last 24 Hours (Table) 10/07/22 Range/Units 07:04 Potassium 2.9 L (3.5-5.1) mmol/L
[2022-10-07] MEDS: carvediloL 6.25 MG TAB PO SCH (17:23)
[2022-10-07] MEDS: FAMOTIDINE 20 MG TAB PO SCH (19:42)
[2022-10-07] MEDS ORDERED: POTASSIUM CHLORIDE ER 20 MEQ TAB.ER PO SCH (21:00)
[2022-10-07] MEDS ORDERED: hydrALAZINE HCL 50 MG TAB PO SCH (21:38)
[2022-10-08] MEDS: FUROSEMIDE 10 MG/ML 4 ML VIAL IV SCH ×2 (03:41→14:49)
[2022-10-08] MEDS: carvediloL 6.25 MG TAB PO SCH (06:02)
[2022-10-08] MEDS ORDERED: HEPARIN SODIUM,PORCINE 10,000 UNIT in SODIUM CHLORIDE 0.9% 1,000 ML IRRIGATION PRN (07:00)
[2022-10-08] MEDS ORDERED: HEPARIN SODIUM,PORCINE 2,500 UNIT in SODIUM CHLORIDE 0.9% 250 ML IRRIGATION PRN (07:00)
[2022-10-08 07:38] LABS: Basophils # (A) 0.1 k/uL (0-0.2); Basophils % (A) 1 %; Eosinophils # (A) 0.2 k/uL (0-0.7); Eosinophils % (A) 2 %; HCT 46.6 % (39.0-53.0); HGB 15.2 gm/dL (13.0-17.5); Lymphocytes # (A) 1.8 k/uL (1.0-4.8); Lymphocytes % (A) 19 %; MCH 27.8 pg (25.0-35.0); MCHC 32.6 g/dL (31.0-37.0); MCV 85.2 fL (80.0-100.0); Mean Platelet Volume 7.2; Monocytes # (A) 0.6 k/uL (0-1.0); Monocytes % (A) 6 %; Neutrophils # (A) 6.8 k/uL (1.3-7.7); Neutrophils % (A) 71 %; Platelet Count 218 k/uL (150-450); Poikilocytosis Slight; RBC 5.47 m/uL (4.30-5.90); RDW 14.4 % (11.5-15.5); WBC 9.6 k/uL (3.8-10.6)
[2022-10-08] MEDS ORDERED: ALPRAZolam 0.5 MG TAB PO PRN (07:56)
[2022-10-08] MEDS ORDERED: ALPRAZolam 0.25 MG TAB PO PRN (07:56)
[2022-10-08] MEDS ORDERED: NITROGLYCERIN SL TABS 0.4 MG TAB SUBLINGUAL PRN (07:56)
[2022-10-08] MEDS ORDERED: ATORVASTATIN 80 MG TAB PO STA (07:56)
[2022-10-08 07:58] LABS: Calcium 8.5 mg/dL (8.4-10.2); Potassium 3.7 mmol/L (3.5-5.1)
[2022-10-08] MEDS: ASPIRIN 325 MG TAB PO STA ×2 (08:10→08:11)
[2022-10-08] MEDS: lisinopriL 20 MG TAB PO SCH (08:11)
[2022-10-08] MEDS: FAMOTIDINE 20 MG TAB PO SCH ×2 (08:11→20:20)
[2022-10-08] MEDS: hydrALAZINE HCL 50 MG TAB PO SCH ×3 (08:11→23:13)
[2022-10-08] MEDS: HEPARIN SODIUM,PORCINE/PF 5,000 UNIT/0.5 ML SYRINGE SQ SCH ×2 (08:12→20:20)
[2022-10-08] MEDS: amLODIPine 10 MG TAB PO SCH (08:12)
[2022-10-08] MEDS: SPIRONOLACTONE 25 MG TAB PO SCH (08:12)
--- NOTE | 2022-10-08 11:26 | P.PN ---
Subjective Progress Note Date: 10/08/22 History of present illness: This is a 46-year-old male with past medical history of hypertension not taking medication. We have been asked to see the patient regarding congestive heart failure. 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 Patient states that he stopped taking his blood pressure medications after he lost 80 pounds. He gives history of lower extremity edema for the past week and progressively worsening much worse over the past 3 days, weight gain. He denies chest pain. He states he has had a little shortness of breath for the past 3 months. He was diagnosed with Covid in June and thought his shortness of breath was related to that. He denies any smoking history. He denies family history of coronary artery disease. Patient presented with a blood pressure of 204/138 status post IV Vasotec, IV Lasix, IV hydralazine, lisinopril and Nitro-Bid. EKG sinus rhythm with nonspecific ST changes. Chest x-ray has cardiomegaly. Heart significantly increased compared to old exam. Pericardial effusion is possible. Echocardiogram reveals concentric left ventricular hypertrophy. LV size is normal probably at the upper limits of normal. Normal systolic function and mild to moderate diastolic dysfunction. Right ventricle is prominent with both atria are mildly enlarged. Moderate mitral regurgitation with myxomatous mitral valve leaflets. No pericardial effusion. No pulmonary hypertension. WBC 10.8, hemoglobin 14.7, platelet count 183. INR 1.1. Electrolytes normal. BUN 25 and creatinine 1.18. Blood sugar 124. Troponins 0.104, 0.102, 0.077. Triglycerides 66, cholesterol 205, LDL 137, HDL 54, TSH 0.5-5. 3/2 Patient is seen today on the cardiac stepdown unit. He did not have blood pressure remains high and heart rate is elevated. He states he is feeling well today. No chest pain or shortness of breath. Overall condition is improved from yesterday. He states he felt a sudden onset of 4 AM. He is urinating well and decreased edema to the lower extremities. Repeat blood work reveals sodium of 139, potassium 2.9, BUN 17 and creatinine 1.03. 3 Patient states his breathing is stable today. No chest pain. Lower extremity edema has resolved. Discussed option of cardiac catheterization with the jonathan mills and he is agreeable to move forward. He has been nothing by mouth and he will be scheduled for today. Blood pressure readings are still elevated but improved from admission. Physical examination: Gen: This is a 46-year-old male. He is resting in bed and appears to be comfortable at rest. VS: reviewed. Blood pressure 130/18683/124, heart rate in the 80s, pulse ox 97% on room air, afebrile HEENT: Head is atraumatic, normocephalic. Pupils equal, round. Sclerae is anicteric. NECK: Supple. No JVD. LUNGS: Clear to auscultation. No wheezes or rhonchi. No intercostal retract ions. HEART: Regular rate and rhythm. No murmur. EXTREMITIES: No pedal edema. No calf tenderness. NEUROLOGICAL: Patient is awake, alert and oriented x3. Cranial nerves 2 through 12 are grossly intact. Assessment: Acute diastolic heart failure, per served(systolic function Elevated troponin, of unclear etiology, possibly due to heart failure and hypertension Hypertensive crisis Hypertensive cardiovascular disease Plan: Continue patient on Lasix 40 mg IV every 8 hours Monitor I&O, daily weights, electrolytes and renal function Continue Coreg 6.125 mg twice daily, continue lisinopril 40 mg daily, and Aldactone 25 mg daily Scheduled for cardiac catheterization today with Dr. Damico Further recommendations to follow based upon clinical course Nurse practitioner note has been reviewed, I agree with documented findings and plan of care. Patient was seen and examined. Objective - Vital Signs Vital signs: Vital Signs Temp 98.0 F 10/07/22 20:00 Pulse 60 10/08/22 04:00 Resp 18 10/08/22 04:00 BP 150/90 10/08/22 04:00 Pulse Ox 97 10/08/22 04:00 FiO2 Intake & Output 10/07/22 10/08/22 10/08/22 18:59 06:59 18:59 Intake Total 480 Output Total 1150 600 Balance -1150 -120 Weight 87 kg Intake: Oral 480 Output: Urine 1150 600 Other: Voiding Method Toilet Toilet # Voids 2 - Labs CBC & Chem 7: 10/08/22 07:18 10/08/22 07:18 Labs: Abnormal Lab Results - Last 24 Hours (Table) 10/07/22 Range/Units 07:04 Potassium 2.9 L (3.5-5.1) mmol/L
[2022-10-08] MEDS: hydrALAZINE HCL 20 MG/ML 1 ML VIAL IVP PRN (11:49)
[2022-10-08 12:03] VITALS: BMI 27.5
[2022-10-08] MEDS ORDERED: VERAPAMIL 2.5 MG/ML 2 ML AMP ONE (13:01)
[2022-10-08] MEDS ORDERED: HEPARIN SODIUM 1,000 UN/ML (10ML VL) ONE (13:20)
[2022-10-08] MEDS ORDERED: SODIUM CHLORIDE 0.9% 1,000 ML IV ONE (13:24)
[2022-10-08] MEDS ORDERED: MIDAZOLAM 2 MG/2 ML VIAL IVP ONE (13:25)
[2022-10-08] MEDS ORDERED: LIDOCAINE 1% INJ 10MG/ML (5 ML VIAL-PF) SQ ONE (13:27)
[2022-10-08] MEDS ORDERED: VERAPAMIL SYRINGE (5 MG/10 ML) INTRAARTER ONE (13:30)
[2022-10-08] MEDS ORDERED: IOPAMIDOL-370 125ML BTL INTRATHECA ONE (13:35)
[2022-10-08] MEDS ORDERED: RX INFO: IV CONTRAST WAS GIVEN 1 EACH MISC MISCELLANE PRN (13:36)
--- NOTE | 2022-10-08 13:40 | P.PCN ---
Date of Procedure: 10/08/22 Operative Findings: CARDIAC CATHETERIZATION PERFORMING PHYSICIAN: José Antonio Damico MD, RPVI PROCEDURE PERFORMED: 1. Selective right and left coronary angiogram 2. Left heart catheterization INDICATION: Acute coronary syndrome COMPLICATION: None APPROACH: Right radial artery LEVEL OF SEDATION: Moderate with a sedation length of 10 minutes PROCEDURE DESCRIPTION: After obtaining an informed consent, the patient was brought to cardiac cath la b. Local anesthesia was performed using lidocaine subcutaneously. The right radial artery was cannulated using Seldinger technique, the guidewire passed easily, following that we advanced a 5-Nepalese sheath dilator assembly, the wire and dilator were removed and sheath was flushed. Following that, 2 mg of verapamil along with 5000 unit heparin were given. Selective right and left coronary angiogram using a 6-Nepalese JR4 and JL 3.5 catheters. Following that we did left heart catheterization using 6-Nepalese pigtail catheter. The procedure was completed there was no complication. SELECTIVE CORONARY ANGIOGRAM: The right coronary artery: Large caliber vessel and a dominant vessel. The RCA is angiographically normal distally bifurcates into PDA and PLV branches and both appeared to be angiographically normal. Left main: It is angiographically normal and bifurcates into an LCx and LAD The left circumflex: Large caliber vessel and codominant vessel. Its angiographically normal. Approximately gives rises into a large OM branch which appeared to be normal. Distally bifurcates into PDA and PLV branches both appeared to be angiographically normal The left anterior descending artery: Large caliber vessel. Its angiographically normal. Gives rises into first and second diagonal branches both appeared to be angiographically normal. HEMODYNAMICS: The LVEDP was 16 mmHg was no significant gradient across aortic valve CONCLUSION: 1. Normal coronary angiogram 2. Mildly elevated left-sided filling pressure POSTPROCEDURE MANAGEMENT: Medical treatment and follow-up with the patient
[2022-10-08] MEDS ORDERED: SODIUM CHLORIDE 0.9% 1,000 ML IV SCH (13:45)
[2022-10-08] MEDS ORDERED: carvediloL 6.25 MG TAB PO STA (13:49)
[2022-10-08] MEDS ORDERED: IPRATROPIUM-ALBUTEROL 3 ML NEB INHALATION PRN (14:38)
[2022-10-08] MEDS: FUROSEMIDE 40 MG TAB PO SCH (16:21)
[2022-10-08] MEDS: carvediloL 12.5 MG TAB PO SCH (16:21)
[2022-10-08] MEDS: ACETAMINOPHEN TAB 325 MG TAB PO PRN (18:15)
[2022-10-08] MEDS: ALBUTEROL HFA INHALER INHALATION PRN (20:23)
[2022-10-09] MEDS: hydrALAZINE HCL 20 MG/ML 1 ML VIAL IVP PRN (03:09)
[2022-10-09] MEDS: carvediloL 12.5 MG TAB PO SCH ×2 (06:30→17:40)
[2022-10-09] MEDS: TIOTROPIUM 2.5 MCG INHALER INHALATION PRN (08:37)
[2022-10-09] MEDS: ALBUTEROL HFA INHALER INHALATION PRN ×3 (08:37→15:26)
[2022-10-09] MEDS: ASPIRIN 325 MG TAB PO SCH (08:54)
[2022-10-09] MEDS: HEPARIN SODIUM,PORCINE/PF 5,000 UNIT/0.5 ML SYRINGE SQ SCH ×2 (08:54→20:08)
[2022-10-09] MEDS: lisinopriL 20 MG TAB PO SCH (08:54)
[2022-10-09] MEDS: hydrALAZINE HCL 50 MG TAB PO SCH ×3 (08:54→23:38)
[2022-10-09] MEDS: SPIRONOLACTONE 25 MG TAB PO SCH (08:54)
[2022-10-09] MEDS: amLODIPine 10 MG TAB PO SCH (08:54)
[2022-10-09] MEDS: FUROSEMIDE 40 MG TAB PO SCH ×2 (08:54→17:40)
[2022-10-09] MEDS: FAMOTIDINE 20 MG TAB PO SCH ×2 (08:54→20:08)
--- NOTE | 2022-10-10 00:45 | P.PN ---
Subjective Progress Note Date: 10/07/22 This is a pleasant 46 years old male with past medical history of hypertension. He had comment last June 2022 he presents because of bilateral leg swelling has been going on for about a week, associated with severe exertion, he was concerned about his covid infection few months ago so he came to the emergency roomdate However he denies any chest pain or dyspnea or coughing. But he has been complaining of from mild pain in both legs. No abdominal pain but he vomited twice yesterday. No diarrhea. No urinary symptoms like dysuria urgency He denies headache dizziness weakness or numbness Smoking about 60 days ago, he quit drinking alcohol many years ago and he uses marijuana for a creation. Vitals his stable, afebrile The Anne mildly elevated at 10.8, rest of CBC, INR BMP and liver enzymes u nremarkable. Troponin is elevated at 0.10 on 0.10. ProBNP is elevated 10 700. EKG showing sinus tachycardia at 207, no ST T changes Chest x-ray: Cardiomegaly with possible pericardial effusion. He looked at the chest x-ray myself and there is lack 10/07/2022 Patient is currently sitting on side of the bed. Awake alert oriented x3. Breathing status is hemoglobin Genie is also improving. Otherwise patient is currently high blood pressure still. Continued on IV Lasix 40 mg every 8 hourly. Added Aldactone. Cardiology is on board and planning for cardiac catheter/stress test tomorrow. Laboratory data reviewed. Objective - Vital Signs Vital signs: Vital Signs Temp 97.9 F 10/07/22 10:54 Pulse 76 10/07/22 10:54 Resp 18 10/07/22 10:54 BP 159/98 10/07/22 10:54 Pulse Ox 98 10/07/22 10:54 FiO2 Intake & Output 10/06/22 10/07/22 10/07/22 18:59 06:59 18:59 Intake Total 480 Output Total 2350 Balance -1870 Weight 86.183 kg 84.9 kg Intake: Oral 480 Output: Urine 2350 Other: Voiding Method Toilet Toilet Toilet # Voids 1 3 2 - Exam GENERAL: The patient is alert and oriented x3, not in any acute distress. Well developed, well nourished. HEENT: Pupils are round and equally reacting to light. EOMI. No scleral icterus. No conjunctival pallor. Normocephalic, atraumatic. No pharyngeal erythema. No thyromegaly. CARDIOVASCULAR: S1 and S2 present. No murmurs, rubs, or gallops. PULMONARY: Chest is clear to auscultation, no wheezing or crackles. ABDOMEN: Soft, nontender, nondistended, normoactive bowel sounds. No palpable organomegaly. MUSCULOSKELETAL: No joint swelling or deformity. -EXTREMITIES: No cyanosis, clubbing,, bilateral pitting like edema. NEUROLOGICAL: Gross neurological examination did not reveal any focal deficits. SKIN: No rashes. no petechiae. - Labs CBC & Chem 7: 10/08/22 07:18 10/08/22 07:18 Labs: Abnormal Lab Results - Last 24 Hours (Table) 10/07/22 Range/Units 07:04 Potassium 2.9 L (3.5-5.1) mmol/L Assessment and Plan Assessment: Acute CHF with preserved ejection fraction. Evaded troponin level likely due to uncontrolled hypertension Hypertensive emergency DVT prophylaxis possible pericardial effusion Plan: Patient will be current on IV Lasix 40 mg every 8 hourly. Also on Coreg, lisinopril, hydralazine and Aldactone. Continue with aspirin. 2D echocardiogram showed preserved ejection fraction. Cardiology is on board and is planning for cardiac catheterization tomorrow. DVT prophylaxis: Subcutaneous heparin GI Prophylaxis: Pepcid Time with Patient: Greater than 30
--- NOTE | 2022-10-10 00:47 | P.PN ---
Subjective Progress Note Date: 10/08/22 This is a pleasant 46 years old male with past medical history of hypertension. He had comment last June 2022 he presents because of bilateral leg swelling has been going on for about a week, associated with severe exertion, he was concerned about his covid infection few months ago so he came to the emergency roomdate However he denies any chest pain or dyspnea or coughing. But he has been complaining of from mild pain in both legs. No abdominal pain but he vomited twice yesterday. No diarrhea. No urinary symptoms like dysuria urgency He denies headache dizziness weakness or numbness Smoking about 60 days ago, he quit drinking alcohol many years ago and he uses marijuana for a creation. Vitals his stable, afebrile The Anne mildly elevated at 10.8, rest of CBC, INR BMP and liver enzymes u nremarkable. Troponin is elevated at 0.10 on 0.10. ProBNP is elevated 10 700. EKG showing sinus tachycardia at 207, no ST T changes Chest x-ray: Cardiomegaly with possible pericardial effusion. He looked at the chest x-ray myself and there is lack 10/07/2022 Patient is currently sitting on side of the bed. Awake alert oriented x3. Breathing status is hemoglobin Genie is also improving. Otherwise patient is currently high blood pressure still. Continued on IV Lasix 40 mg every 8 hourly. Added Aldactone. Cardiology is on board and planning for cardiac catheter/stress test tomorrow. Laboratory data reviewed. 10/08/2022 Patient is currently lying in the bed. Awake alert and oriented x3. No complaints of chest pain or shortness of breath. Currently on room air. Lower extremities swelling is much improved. Lasix changed to by mouth. Otherwise blood pressure is still awaited. Patient underwent cardiac catheterization today which showed normal coronary angiogram. Mildly elevated left-sided filling pressure. Laboratory showed WBC 9.6 hemoglobin 15.1 platelets 218 sodium 138 potassium 3.7 chloride 103 bicarb is 30 BUN 24 and creatinine 1.29. Calcium 8.5. Current medications reviewed. Objective - Vital Signs Vital signs: Vital Signs Temp 98.1 F 10/08/22 20:20 Pulse 79 10/08/22 20:20 Resp 15 10/08/22 20:20 BP 162/92 10/08/22 20:20 Pulse Ox 96 10/08/22 20:20 FiO2 Intake & Output 10/08/22 10/08/22 10/09/22 06:59 18:59 06:59 Intake Total 480 1198 Output Total 600 600 Balance -120 598 Weight 87 kg 87 kg Intake: IV 50 Intake, IV Titration 300 Amount Sodium Chloride 0.9% 1, 300 000 ml @ 75 mls/hr IV . [id number] [facility] Rx#:[id number] Oral 480 848 Output: Urine 600 600 Other: Voiding Method Toilet Toilet Toilet # Voids 2 - Exam GENERAL: The patient is alert and oriented x3, not in any acute distress. Well developed, well nourished. HEENT: Pupils are round and equally reacting to light. EOMI. No scleral icterus. No conjunctival pallor. Normocephalic, atraumatic. No pharyngeal erythema. No thyromegaly. CARDIOVASCULAR: S1 and S2 present. No murmurs, rubs, or gallops. PULMONARY: Chest is clear to auscultation, no wheezing or crackles. ABDOMEN: Soft, nontender, nondistended, normoactive bowel sounds. No palpable organomegaly. MUSCULOSKELETAL: No joint swelling or deformity. -EXTREMITIES: No cyanosis, clubbing,, bilateral pitting like edema. NEUROLOGICAL: Gross neurological examination did not reveal any focal deficits. SKIN: No rashes. no petechiae. - Labs CBC & Chem 7: 10/08/22 07:18 10/08/22 07:18 Labs: Abnormal Lab Results - Last 24 Hours (Table) 10/08/22 Range/Units 07:18 BUN 24 H (9-20) mg/dL Creatinine 1.29 H (0.66-1.25) mg/dL Assessment and Plan Assessment: Acute CHF with preserved ejection fraction. Evaded troponin level likely due to uncontrolled hypertension Hypertensive emergency DVT prophylaxis possible pericardial effusion Plan: Patient will be current on IV Lasix 40 mg every 8 hourly.Changed to Lasix 40 mg p.o. twice daily. Also on Coreg, lisinopril, hydralazine and Aldactone. Continue with aspirin. 2D echocardiogram showed preserved ejection fraction. Cardiac catheterization showed normal coronaries. Cardiology is on board. DVT prophylaxis: Subcutaneous heparin GI Prophylaxis: Pepcid Time with Patient: Greater than 30
--- NOTE | 2022-10-10 00:49 | P.PN ---
Subjective Progress Note Date: 10/09/22 This is a pleasant 46 years old male with past medical history of hypertension. He had comment last June 2022 he presents because of bilateral leg swelling has been going on for about a week, associated with severe exertion, he was concerned about his covid infection few months ago so he came to the emergency roomdate However he denies any chest pain or dyspnea or coughing. But he has been complaining of from mild pain in both legs. No abdominal pain but he vomited twice yesterday. No diarrhea. No urinary symptoms like dysuria urgency He denies headache dizziness weakness or numbness Smoking about 60 days ago, he quit drinking alcohol many years ago and he uses marijuana for a creation. Vitals his stable, afebrile The Anne mildly elevated at 10.8, rest of CBC, INR BMP and liver enzymes u nremarkable. Troponin is elevated at 0.10 on 0.10. ProBNP is elevated 10 700. EKG showing sinus tachycardia at 207, no ST T changes Chest x-ray: Cardiomegaly with possible pericardial effusion. He looked at the chest x-ray myself and there is lack 10/07/2022 Patient is currently sitting on side of the bed. Awake alert oriented x3. Breathing status is hemoglobin Genie is also improving. Otherwise patient is currently high blood pressure still. Continued on IV Lasix 40 mg every 8 hourly. Added Aldactone. Cardiology is on board and planning for cardiac catheter/stress test tomorrow. Laboratory data reviewed. 10/08/2022 Patient is currently lying in the bed. Awake alert and oriented x3. No complaints of chest pain or shortness of breath. Currently on room air. Lower extremities swelling is much improved. Lasix changed to by mouth. Otherwise blood pressure is still awaited. Patient underwent cardiac catheterization today which showed normal coronary angiogram. Mildly elevated left-sided filling pressure. Laboratory showed WBC 9.6 hemoglobin 15.1 platelets 218 sodium 138 potassium 3.7 chloride 103 bicarb is 30 BUN 24 and creatinine 1.29. Calcium 8.5. 10/09/2022 Patient is currently resting in bed. Awake alert and oriented x3. No complaints of chest pain or shortness of breath. No nausea vomiting abdominal pain diarrhea. No cough or sputum production. Leg swelling is almost resolved. Otherwise blood pressure is still elevated 177/111 this morning. Patient is being continued on Coreg, Lasix, hydralazine, lisinopril and Aldactone. Also on amlodipine. Continue to titrate blood pressure medications. Otherwise patient denies any complaints of headache or dizziness or lightheadedness. No fever no chills. No cough or sputum production. Patient is able to ambulate in the room. Currently on room air. Current medications reviewed. Objective - Vital Signs Vital signs: Vital Signs Temp 97.6 F 10/09/22 20:00 Pulse 89 10/09/22 20:00 Resp 16 10/09/22 20:00 BP 163/98 10/09/22 20:00 Pulse Ox 97 10/09/22 20:00 FiO2 Intake & Output 10/09/22 10/09/22 10/10/22 06:59 18:59 06:59 Intake Total 200 118 222 Output Total 300 Balance 200 -182 222 Weight 82.9 kg Intake: Oral 200 118 222 Output: Urine 300 Other: Voiding Method Toilet # Voids 3 - Exam GENERAL: The patient is alert and oriented x3, not in any acute distress. Well developed, well nourished. HEENT: Pupils are round and equally reacting to light. EOMI. No scleral icterus. No conjunctival pallor. Normocephalic, atraumatic. No pharyngeal erythema. No thyromegaly. CARDIOVASCULAR: S1 and S2 present. No murmurs, rubs, or gallops. PULMONARY: Chest is clear to auscultation, no wheezing or crackles. ABDOMEN: Soft, nontender, nondistended, normoactive bowel sounds. No palpable organomegaly. MUSCULOSKELETAL: No joint swelling or deformity. -EXTREMITIES: No cyanosis, clubbing,, bilateral pitting like edema. NEUROLOGICAL: Gross neurological examination did not reveal any focal deficits. SKIN: No rashes. no petechiae. - Labs CBC & Chem 7: 10/08/22 07:18 10/08/22 07:18 Assessment and Plan Assessment: Acute CHF with preserved ejection fraction. Evaded troponin level likely due to uncontrolled hypertension Hypertensive emergency DVT prophylaxis possible pericardial effusion Plan: Patient will be current on IV Lasix 40 mg every 8 hourly.Changed to Lasix 40 mg p.o. twice daily. Also on Coreg, amlodipine, lisinopril, hydralazine and Aldactone. Continue with aspirin. 2D echocardiogram showed preserved ejection fraction. Cardiac catheterization showed normal coronaries. Cardiology is on board. DVT prophylaxis: Subcutaneous heparin GI Prophylaxis: Pepcid Anticipate discharge once blood pressure is better controlled. Time with Patient: Greater than 30
[2022-10-10] MEDS: ACETAMINOPHEN TAB 325 MG TAB PO PRN (01:21)
[2022-10-10] MEDS: carvediloL 12.5 MG TAB PO SCH (06:21)
[2022-10-10 08:40] VITALS: RESP 18; TEMP 98
[2022-10-10] MEDS: TIOTROPIUM 2.5 MCG INHALER INHALATION PRN (08:50)
[2022-10-10] MEDS: ALBUTEROL HFA INHALER INHALATION PRN ×3 (08:50→15:14)
[2022-10-10] MEDS: hydrALAZINE HCL 50 MG TAB PO SCH (08:58)
[2022-10-10] MEDS: lisinopriL 20 MG TAB PO SCH (08:58)
[2022-10-10] MEDS: FUROSEMIDE 40 MG TAB PO SCH (08:58)
[2022-10-10] MEDS: FAMOTIDINE 20 MG TAB PO SCH (08:58)
[2022-10-10] MEDS: amLODIPine 10 MG TAB PO SCH (08:58)
[2022-10-10] MEDS: ASPIRIN 325 MG TAB PO SCH (08:58)
[2022-10-10] MEDS: SPIRONOLACTONE 25 MG TAB PO SCH (08:58)
[2022-10-10] MEDS: HEPARIN SODIUM,PORCINE/PF 5,000 UNIT/0.5 ML SYRINGE SQ SCH (08:59)
[2022-10-10 09:23] LABS: Basophils % (A) 1 %; Eosinophils # (A) 0.1 k/uL (0-0.7); Eosinophils % (A) 1 %; HCT 49.9 % (39.0-53.0); Lymphocytes # (A) 1.5 k/uL (1.0-4.8); Lymphocytes % (A) 17 %; MCH 27.9 pg (25.0-35.0); MCV 87.1 fL (80.0-100.0); Mean Platelet Volume 7.5; Monocytes # (A) 0.4 k/uL (0-1.0); Monocytes % (A) 4 %; Neutrophils # (A) 6.5 k/uL (1.3-7.7); Neutrophils % (A) 76 %; Platelet Count 216 k/uL (150-450); Poikilocytosis Slight; RBC 5.73 m/uL (4.30-5.90); RDW 14.5 % (11.5-15.5); WBC 8.6 k/uL (3.8-10.6)
[2022-10-10 09:40] LABS: African American GFR (CKD) >90 (>60 ml/min/1.73 sqM); Anion Gap 7 mmol/L; Blood Urea Nitrogen 17 mg/dL (9-20); Carbon Dioxide 24 mmol/L (22-30); Chloride 105 mmol/L (98-107); Glucose 167 mg/dL (74-99); Non-African American GFR(CKD) 82 (>60 ml/min/1.73 sqM); Potassium 3.5 mmol/L (3.5-5.1); Sodium 136 mmol/L (137-145)
[2022-10-10 12:19] VITALS: BP 159/101; PULSE 74
--- NOTE | 2022-10-13 12:32 | CDI ---
Documentation Clarification Form Date: 10/13/22 From: Linnette Waddell Admit Date: 10/05/2022 8:06:00 PM Patient Name: Sajan Hi Visit Number: [id number] Discharge Date: 10/10/2022 4:35:00 PM ATTENTION: The Clinical Documentation Specialists (CDI) and [facility] Coding Staff appreciate your assistance in clarifying documentation. Please respond to the clarification below the line at the bottom and electronically sign. The CDI & [facility] Coding staff will review the response and follow-up if needed. Please note: Queries are made part of the Legal Health Record. If you have any questions, please contact the author of this message via ITS. Dr. Maci Mallory, Your patient has troponin level(s) of: 0.104, 0.102, 0.077. Please clarify if there is an additional diagnosis and/or clinical significance related to this value. Patient history/risk factors: HTN w acute diastolic CHF and hypertensive emergency Clinical indicators: Per 3/2 PN, Elevated troponin, of unclear etiology, possibly due toheart failureand hypertension. Treatment: Lasix 4o mg IV every 8 hrs, Monitor I O, daily weights, electrolytes and renal function, increase Coreg 12.5 ng po BID, continue Lisinopril 40 mg daily, start Aldactone 25 mg daily Is there an additional diagnosis and/or clinical significance related to the above lab result/information: [ ] Type 2 IN due to (specify cause ____) [ x ] Non-ischemic myocardial injury [ ] No additional diagnosis/Not clinically significant [ ] Other, please specify [ ] Unable to determine MTDD
--- NOTE | 2022-10-20 13:49 | P.DS ---
Providers Date of admission: 10/05/22 20:06 Expected date of discharge: 10/10/22 Attending physician: Jorje Hernandez Consults: 10/05/22 20:05 Consult Physician Urgent Consulting Provider: José Antonio Damico Consult Reason/Comments: chf ? effusion Do you want consulting provider notified?: Yes Primary care physician: Stated None Hospital Course: Discharge diagnosis Acute CHF with preserved ejection fraction. Grade 3 diastolic dysfunction. Echocardiogram showed ejection fraction 55-60%. No pericardial effusion noted. Evaded troponin level likely due to uncontrolled hypertension. Status post cardiac catheterization. No PCI. Hypertensive emergency DVT prophylaxis Hospital course This is a pleasant 46 years old male with past medical history of hypertension. He had comment last June 2022 he presents because of bilateral leg swelling has been going on for about a week, associated with severe exertion, he was concerned about his covid infection few months ago so he came to the emergency roomdate However he denies any chest pain or dyspnea or coughing. But he has been complaining of from mild pain in both legs. No abdominal pain but he vomited twice yesterday. No diarrhea. No urinary symptoms like dysuria urgency He denies headache dizziness weakness or numbness Smoking about 60 days ago, he quit drinking alcohol many years ago and he uses marijuana for a creation. Vitals his stable, afebrile The [place] mildly elevated at 10.8, rest of CBC, INR BMP and liver enzymes unremarkable. Troponin is elevated at 0.10 on 0.10. ProBNP is elevated 10 700. EKG showing sinus tachycardia at 207, no ST T changes Chest x-ray: Cardiomegaly with possible pericardial effusion. He looked at the chest x-ray myself and there is lack 10/07/2022 Patient is currently sitting on side of the bed. Awake alert oriented x3. Breathing status is hemoglobin Genie is also improving. Otherwise patient is currently high blood pressure still. Continued on IV Lasix 40 mg every 8 gary rly. Added Aldactone. Cardiology is on board and planning for cardiac catheter/stress test tomorrow. Laboratory data reviewed. 10/08/2022 Patient is currently lying in the bed. Awake alert and oriented x3. No complaints of chest pain or shortness of breath. Currently on room air. Lower extremities swelling is much improved. Lasix changed to by mouth. Otherwise blood pressure is still awaited. Patient underwent cardiac catheterization today which showed normal coronary angiogram. Mildly elevated left-sided filling pressure. Laboratory showed WBC 9.6 hemoglobin 15.1 platelets 218 sodium 138 potassium 3.7 chloride 103 bicarb is 30 BUN 24 and creatinine 1.29. Calcium 8.5. 10/09/2022 Patient is currently resting in bed. Awake alert and oriented x3. No complaints of chest pain or shortness of breath. No nausea vomiting abdominal pain diarrhea. No cough or sputum production. Leg swelling is almost resolved. Otherwise blood pressure is still elevated 177/111 this morning. Patient is being continued on Coreg, Lasix, hydralazine, lisinopril and Aldactone. Also on amlodipine. Continue to titrate blood pressure medications. Otherwise patient denies any complaints of headache or dizziness or lightheadedness. No fever no chills. No cough or sputum production. Patient is able to ambulate in the room. Currently on room air. 10/10/2022 Patient is currently resting in bed. Awake alert and oriented 3. Blood pressure is better controlled. No complaints of chest pain or shortness of breath. No nausea vomiting abdominal pain or diarrhea. No cough or sputum production. Patient is currently on Coumadin. Patient is being discharged home today and follow with primary care physician for further titration of medications. Cleared from cardiology standpoint. PHYSICAL EXAMINATION: Patient is lying in the bed comfortably, no acute distress, awake alert and oriented.. HEENT: Normocephalic. Neck is supple. Pupils reactive. Nostrils clear. Oral cavity is moist. Neck reveals no JVD, carotid bruits, or thyromegaly. CHEST EXAMINATION: Trachea is central. Symmetrical expansion. Lung neumann clear to auscultation and percussion. CARDIAC: Normal S1, S2 with no gallops. No murmurs ABDOMEN: Soft. Bowel sounds normal. No organomegaly. No abdominal bruits. Extremities: reveal no edema. No clubbing or cyanosis Neurologically awake, alert, oriented x3 with well-coordinated movements. No focal deficits noted Skin: No rash or skin lesions. Psychiatric: Coperative. Nonsuicidal Musculoskeletal: No joint swelling or deformity. Normal range of motion. Discharge medications reviewed. Patient Condition at Discharge: Good Plan - Discharge Summary Discharge Rx Participant: No New Discharge Prescriptions: New Aspirin [Adult Low Dose Aspirin EC] 81 mg PO DAILY #30 tab Spironolactone [Aldactone] 25 mg PO DAILY #30 tab carvediloL [Coreg*] 12.5 mg PO BID-W/MEALS #60 tab lisinopriL [Zestril] 40 mg PO DAILY #60 tab hydrALAZINE HCL [Apresoline] 50 mg PO Q8HR #90 tab Furosemide [Lasix] 40 mg PO BID@0900,1600 #60 tab amLODIPine [Norvasc] 10 mg PO DAILY #30 tab Albuterol Inhaler [Ventolin Hfa Inhaler] 2 puff INHALATION RT-QID PRN #1 each PRN Reason: Shortness Of Breath Or Wheezing Discharge Medication List Albuterol Inhaler [Ventolin Hfa Inhaler] 2 puff INHALATION RT-QID PRN #1 each 10/10/22 [Rx] Aspirin [Adult Low Dose Aspirin EC] 81 mg PO DAILY #30 tab 10/10/22 [Rx] Furosemide [Lasix] 40 mg PO BID@0900,1600 #60 tab 10/10/22 [Rx] Spironolactone [Aldactone] 25 mg PO DAILY #30 tab 10/10/22 [Rx] amLODIPine [Norvasc] 10 mg PO DAILY #30 tab 10/10/22 [Rx] carvediloL [Coreg*] 12.5 mg PO BID-W/MEALS #60 tab 10/10/22 [Rx] hydrALAZINE HCL [Apresoline] 50 mg PO Q8HR #90 tab 10/10/22 [Rx] lisinopriL [Zestril] 40 mg PO DAILY #60 tab 10/10/22 [Rx] Follow up Appointment(s)/Referral(s): Alonzo Aviles MD [STAFF PHYSICIAN] - 10/15/22 10:30 am (Please call your insurance and have them add Dr. Aviles.) Patient Instructions/Handouts: Chronic Hypertension (DC) Discharge Disposition: HOME SELF-CARE
== END 2022-10-10 16:35 | disposition home or self-care (01) | DRG 192 ==
LOC: EC 17:57 → 3SCARD 20:06
PROVIDERS: ADMIT Hospitalist; ATTEND Hospitalist
PROC: B2111ZZ Fluoroscopy of Multiple Coronary Arteries using Low Osmolar Contrast (ICD-10-PCS; 2022-10-08)
PROC: 4A023N7 Measurement of Cardiac Sampling and Pressure, Left Heart, Percutaneous Approach (ICD-10-PCS; principal; 2022-10-08 09:55)
DX: I11.0 Hypertensive heart disease with heart failure (principal); I50.31 Acute diastolic (congestive) heart failure; I5A Non-ischemic myocardial injury (non-traumatic); I16.1 Hypertensive emergency; I34.0 Nonrheumatic mitral (valve) insufficiency; M79.604 Pain in right leg; M79.605 Pain in left leg; Z86.16 Personal history of COVID-19; Z87.891 Personal history of nicotine dependence; Z88.0 Allergy status to penicillin
CPT/HCPCS: 36415; 71046; 80048; 80053; 80061; 83036; 83880; 84132; 84443; 84484; 85025; 85610; 85730; 93005; 93306; 93458; 93970; 94640; 94760; 96372; 96374; 96375; 96376; 99285

== ENCOUNTER 2022-12-31 14:50 | Emergency (ER) | payer OTHER ==
[2022-12-31 15:17] VITALS: TEMP 98.4
[2022-12-31 16:35] VITALS: RESP 18
[2022-12-31] MEDS ORDERED: lisinopriL 20 MG TAB PO STA (16:45)
[2022-12-31] MEDS ORDERED: FUROSEMIDE 40 MG TAB PO STA (16:45)
[2022-12-31 17:08] VITALS: PULSE 68
--- NOTE | 2022-12-31 17:11 | ED ---
General Adult HPI - General Chief complaint: Syncope Stated complaint: Rt leg pain Time Seen by Provider: 12/31/22 16:35 Source: patient, RN notes reviewed, old records reviewed Mode of arrival: ambulatory Limitations: no limitations - History of Present Illness Initial comments: Patient is a 47-year-old male presents emergency department seeking splinting of his right ankle as he broke it. Originally presented to urgent care for right ankle pain. Patient had a syncopal episode yesterday which she attributes to incorrect taking his blood pressure medications, taking extra as he forgot to take his Medicaid doses. States he became lightheaded and believe he had a fainting episode while standing at a graduation ceremony. He rolled his right ankle. Has some pain in his right ankle which prompted an urgent care who did x-rays and found to be appropriate. Recommended to come here for splinting did not have materials. Denies any other acute complaints at this time. Is just seeking splinting of his ankle. He is mildly hypertensive and states he has missed midday doses of medications. Denies any other acute complaints at this time. Presents for further evaluation this time. - Related Data Home Medications Medication Instructions Recorded Confirmed Albuterol Nebulized [Ventolin 2.5 mg INHALATION RT-QID PRN 12/31/22 12/31/22 Nebulized] Furosemide [Lasix] 40 mg PO DAILY 12/31/22 12/31/22 Spironolactone [Aldactone] 25 mg PO DAILY@1800 12/31/22 12/31/22 carvediloL [Coreg] 25 mg PO BID 12/31/22 12/31/22 hydrALAZINE HCL [Apresoline] 50 mg PO TID 12/31/22 12/31/22 lisinopriL [Zestril] 40 mg PO DAILY@1800 12/31/22 12/31/22 Previous Rx's Medication Instructions Recorded Albuterol Inhaler [Ventolin Hfa 2 puff INHALATION RT-QID PRN #1 10/10/22 Inhaler] each Aspirin [Adult Low Dose Aspirin EC] 81 mg PO DAILY #30 tab 10/10/22 amLODIPine [Norvasc] 10 mg PO DAILY #30 tab 10/10/22 Allergies Allergy/AdvReac Type Severity Reaction Status Date / Time Penicillins Allergy Unknown Verified 12/31/22 17:29 Childhood Review of Systems ROS Statement: Those systems with pertinent positive or pertinent negative responses have been documented in the HPI. Review of Systems: CONST: Denies fever EYES: Denies blurry vision ENT: Denies nasal congestion C/V: Denies Chest pain RESP: Denies shortness of breath GI: Denies abdominal pain : Denies dysuria SKIN: Denies rash. MSK: Endorses right ankle pain NEURO: Denies headache ROS Other: All systems not noted in ROS Statement are negative. Past Medical History Past Medical History: Hypertension Additional Past Medical History / Comment(s): covid 06/2022 History of Any Multi-Drug Resistant Organisms: None Reported Past Surgical History: No Surgical Hx Reported Past Anesthesia/Blood Transfusion Reactions: No Reported Reaction Past Psychological History: No Psychological Hx Reported Smoking Status: Former smoker Past Alcohol Use History: None Reported Past Drug Use History: Marijuana - Past Family History Brother(s) Family Medical History: Hypertension General Exam - General Exam Comments Initial Comments: General: Appears in no acute distress. HEAD: Normal with no signs of head trauma. EYES: PERRLA, EOMI, conjunctiva normal, no discharge. Pupils are 2 mm and equal bilaterally. ENT: Hearing grossly intact, normal oropharynx. RESPIRATORY: Clear breath sounds bilaterally. No wheezes, rales, or rhonchi. C/V: Regular rate and rhythm. S1 and S2 auscultated, peripheral pulses 2+ and intact throughout ABD: Abd is soft, nontender, nondistended EXT: Decreased range of motion of the right ankle. Tetanus palpation over the lateral malleolus and distal fibula on the right. SKIN: No rashes or lesions observed on exposed skin. NEURO: Alert and oriented 4. No focal sensory deficits but does have some strength deficits in the right foot secondary to pain in the right lateral ankle. Limitations: no limitations Course Vital Signs 12/31/22 12/31/22 12/31/22 15:12 16:32 17:07 Temperature 98.4 F Pulse Rate 79 84 68 Respiratory 20 18 18 Rate Blood Pressure 194/103 186/102 167/98 O2 Sat by Pulse 97 Oximetry 12/31/22 17:33 Temperature Pulse Rate 68 Respiratory 18 Rate Blood Pressure 171/98 O2 Sat by Pulse Oximetry Procedures - Orthopedic Splinting/Casting Injury #1 Side: right Lower Extremity Injury Location: short leg, ankle Additional Comments: Neurovascular intact following the procedure. Medical Decision Making - Medical Decision Making Was pt. sent in by a medical professional or institution (RICARDO Marie, LAMP INSPECTOR, urgent care, hospital, or halfway...) When possible be specific @ -Sent by urgent care for splinting of the right ankle. Did you speak to anyone other than the patient for history (EMS, parent, family, police, friend...)? What history was obtained from this source @ -No Did you review nursing and triage notes (agree or disagree)? Why? @ -I reviewed and agree with nursing and triage notes Were old charts reviewed (outside hosp., previous admission, EMS record, old EKG, old radiological studies, urgent care reports/EKG's, halfway records)? Report findings @ -Patient's right ankle x-rays reviewed from urgent care. Shows findings concerning for distal fibula fracture. Differential Diagnosis (chest pain, altered mental status, abdominal pain women, abdominal pain men, vaginal bleeding, weakness, fever, dyspnea, syncope, headache, dizziness, GI bleed, back pain, seizure, CVA, palpatations, mental health, musculoskeletal)? @ -Ankle fracture, syncopal episode. Ankle sprain. This list is not. EKG interpreted by me (3pts min.). @ -As above X-rays interpreted by me (1pt min.). @ -None done. Outside x-ray shows right distal fibular fracture. CT interpreted by me (1pt min.). @ -None done U/S interpreted by me (1pt. min.). @ -None done What testing was considered but not performed or refused? (CT, X-rays, U/S, labs)? Why? @ -Considered syncope workup the patient declined. Was amenable to receiving his normal blood pressure medications as well as an EKG. What meds were considered but not given or refused? Why? @ -Patient declined analgesia medications. Did you discuss the management of the patient with other professionals (professionals i.e. RICARDO Marie, LAMP INSPECTOR, lab, RT, psych nurse, adoption social worker, collections assistant, teacher, airplane first officer, case checker)? Give summary @ -No Was smoking cessation discussed for >3mins.? @ -No Was critical care preformed (if so, how long)? @ -No Were there social determinants of health that impacted care today? How? (Homelessness, low income, unemployed, alcoholism, drug addiction, transportation, low edu. Level, literacy, decrease access to med. care, prison, rehab)? @ -No Was there de-escalation of care discussed even if they declined (Discuss DNR or withdrawal of care, Hospice)? DNR status @ -No What co-morbidities impacted this encounter? (DM, HTN, Smoking, COPD, CAD, Cancer, CVA, ARF, Chemo, Hep., AIDS, mental health diagnosis, sleep apnea, morbid obesity)? @ -None Was patient admitted / discharged? Hospital course, mention meds given and route, prescriptions, significant lab abnormalities, going to OR and other pertinent info. @ -Based on the patient's presentation and physical exam, presents with his normal hypertension after missing medications, as well as for splinting of the right ankle for a distal fibula fracture. I did offer the patient is in the workup that he only wants an EKG as well as his normal blood pressure medications at this time. These will be provided. EKG shows no obvious acute ischemic process. I did interpret the outside x-rays and does look like he has a distal fibula fracture. Patient will be placed in a stirrup splint. He already has crutches. I did offer him analgesia medications for home which she declined. He'll be given follow-up instructions with orthopedic surgery. Patient was in agreement with this plan. He tolerated the procedure well. Neurovascularly intact following the procedure. I instructed the patient to follow up with their PCP in the next 1-3 days. I provided contact information for follow up with Dr. Orr. I explained that the patient should return to the emergency department if they experience any worsening symptoms. Strict return precautions were discussed with the patient. The patient expressed understanding of these instructions. I answered all questions that the patient had. The patient was discharged home in good condition with their prescriptions and follow up information. Undiagnosed new problem with uncertain prognosis? @ -No Drug Therapy requiring intensive monitoring for toxicity (Heparin, Nitro, Insulin, Cardizem)? @ -No Were any procedures done? @ -No Diagnosis/symptom? @ -Fall, distal right fibula fracture Acute, or Chronic, or Acute on Chronic? @ -Acute Uncomplicated (without systemic symptoms) or Complicated (systemic symptoms)? @ -Complicated Side effects of treatment? @ -No Exacerbation, Progression, or Severe Exacerbation? @ -No Poses a threat to life or bodily function? How? (Chest pain, [place], [place], pneumonia, PE, COPD, DKA, ARF, appy, cholecystitis, CVA, Diverticulitis, Homicidal, Suicidal, threat to staff... and all critical care pts) @ -No - EKG Data -: EKG Interpreted by Me EKG Comments: 12-lead Electrocardiogram Interpretation Note EKG was reviewed and interpreted by myself. 12-lead ECG performed at 1648 is interpreted by me as revealing normal sinus rhythm at a rate of 69 beats per minute. [place] is normal. VT intervals 192 ms, QRS duration is 118 ms, QTc is 442 ms.. There were no ST or T wave abnormalities to suggest myocardial ischemia or injury. R wave progression across the precordium was satisfactory. By my interpretation this EKG is non-diagnostic for acute ischemia.Compared With EKG from October 2022 with no significant change. Disposition Clinical Impression: Right fibular fracture Disposition: HOME SELF-CARE Condition: Fair Instructions (If sedation given, give patient instructions): Leg Fracture (ED) Is patient prescribed a controlled substance at d/c from ED?: No Referrals: Alonzo Aviles MD [Primary Care Provider] - 1-2 days Reinaldo Orr MD [Medical Doctor] - 1-2 days Time of Disposition: 17:56
[2022-12-31 17:33] VITALS: BP 171/98
== END 2022-12-31 18:27 | disposition home or self-care (01) ==
LOC: EC 14:50
DX: S82.401A Unspecified fracture of shaft of right fibula, initial encounter for closed fracture (principal); I10 Essential (primary) hypertension; F12.90 Cannabis use, unspecified, uncomplicated; Z87.891 Personal history of nicotine dependence; Z79.899 Other long term (current) drug therapy; Z88.0 Allergy status to penicillin; Z86.16 Personal history of COVID-19; X50.0XXA Overexertion from strenuous movement or load, initial encounter
CPT/HCPCS: 29515; 93005; 99284

== ENCOUNTER → 2023-01-24 | Outpatient (CLI) | payer OTHER ==
--- NOTE | 2023-01-24 11:14 | US ---
EXAMINATION TYPE: US renal artery duplex complete DATE OF EXAM: 01/24/2023 COMPARISON: NONE CLINICAL INDICATION: Male, 47 years old with history of I10 HYPERTENSION; MEASUREMENTS: RENAL SIZE: Rt Kidney: 11.2 x 4.4 x 5.4 cm Lt Kidney: 9.9 3.7 x 5.1 cm RESISTANCE INDEX Right: 0.62 Left: 0.61 RA/AO RATIO (< 3.5 ) Right: 1.8 Left: 0.9 RA VELOCITY ( < 180 cm/s) Right: 210.8 cm/s Left: 110.0 cm/s Aorta and renals appear unremarkable. Technical limitations due to bowel gas. Limited evaluation or r ight renal artery, appears to have mildly elevated velocity. Left renal artery appears wnl as visuali zed. IMPRESSION: Mild right renal artery stenosis. No evidence of left renal artery stenosis.
== END | disposition home or self-care (01) ==
LOC: RADUSWWP 07:50
PROVIDERS: ATTEND Internal Medicine Interventional Cardiology
DX: I70.1 Atherosclerosis of renal artery (principal); I10 Essential (primary) hypertension
CPT/HCPCS: 93975

== ENCOUNTER → 2024-04-13 | Outpatient (CLI) | payer OTHER ==
--- NOTE | 2024-04-13 10:51 | US ---
EXAMINATION TYPE: US thyroid st tissue head/neck DATE OF EXAM: 04/13/2024 COMPARISON: NONE CLINICAL INDICATION: Male, 48 years old with history of R94.6 THYROID NODULE; Abnormal labs. Not on thyroid meds. GLAND SIZE: Right Lobe: 5.3 x 1.8 x 1.8 cm Overall Parenchyma: homogeneous Left Lobe: 4.9 x 1.8 x 1.6 cm Overall Parenchyma: homogeneous Isthmus Thickness: 0.3 cm NODULES RIGHT: # of nodules measured on right: 0 LEFT: # of nodules measured on left: 1 1. 0.9 X 0.6 x 0.5 cm, upper medial, mixed cystic and solid, hypoechoic nodule, which is wider than tall, with smooth margins, without echogenic foci. Prior size: No prior ISTHMUS: # of nodules measured in the isthmus: 0 Bilateral neck scanned, no evidence of lymphadenopathy. IMPRESSION: Thyromegaly with a subcentimeter left thyroid nodule for which continued surveillance recommended 2017 ACR TI-RADS LEVEL: TR-RADS 1 - BENIGN: No FNA *Highest TI-RADS level nodule reported
== END | disposition home or self-care (01) ==
LOC: RADUSWWP 10:14
PROVIDERS: ATTEND Internal Medicine
DX: R94.6 Abnormal results of thyroid function studies
CPT/HCPCS: 76536